=== PATIENT | female | born 1965 | race Caucasian/White ===

== ENCOUNTER 2020-05-12 10:47 | Inpatient (IN) | payer OTHER, SELFPAY ==
[2020-05-12] VITALS (47 sets, daily range): BP systolic 111–176; BP diastolic 46–100; PULSE 66–91; RESP 11–32; TEMP 36.1–38.1; O2SAT 94–100; BMI 38.2
--- NOTE | 2020-05-12 | DI.RAD.S_ITS ---
PROCEDURE: XR ANKLE LT MIN 3V INDICATIONS: ORIF LEFT ANKLE TECHNIQUE: 3 intraoperative fluoroscopic views of the ankle were acquired. COMPARISON: [facility], CR, XR ANKLE LT 2V, 05/12/2020, 12:05. FINDINGS: Intraoperative fluoroscopic images shows internal fixation of distal fibular shaft. Ankle alignment is anatomic. IMPRESSION: Fluoro guidance was provided intraoperatively for ORIF of distal fibular shaft. Dictated by: Inocente Ryan M.D. on 05/12/2020 at 17:05 Approved by: Inocente Ryan M.D. on 05/12/2020 at 17:06
--- NOTE | 2020-05-12 10:56 | DI.RAD.S_ITS ---
PROCEDURE: XR KNEE LT 1TO2V INDICATIONS: open ankle fx TECHNIQUE: 2 views of the knee were acquired. COMPARISON: [facility], CR, XR ANKLE LT 2V, 05/12/2020, 10:49. FINDINGS: Bones: No fractures or dislocations. No suspicious bony lesions. Medial patellofemoral compartment changes are present consistent with degenerative narrowing. Patellar spur is present. Soft tissues: No joint effusion. No suspicious soft tissue calcifications. IMPRESSION: No visualized acute fracture or dislocation. However, if clinical concern and/or pain persist, short interval imaging followup in 7-10 days is recommended, as occult injury cannot be definitively excluded. Dictated by: Clara Meredith M.D. on 05/12/2020 at 11:51 Approved by: Clara Meredith M.D. on 05/12/2020 at 11:51
--- NOTE | 2020-05-12 10:56 | DI.RAD.S_ITS ---
PROCEDURE: XR ANKLE LT 2V INDICATIONS: open fracture TECHNIQUE: 2 views of the ankle were acquired. COMPARISON: None. FINDINGS: Bones: There is a fracture with displacement of the distal fibula. There is impaction and posterior displacement of the tibia in relation to the tibiotalar joint space. Soft tissues: Prominent tibiotalar joint effusion. Achilles tendon appears normal. IMPRESSION: Distal fibular fracture with severe tibiotalar dislocation. Dictated by: Clara Meredith M.D. on 05/12/2020 at 11:51 Approved by: Clara Meredith M.D. on 05/12/2020 at 12:08
--- NOTE | 2020-05-12 10:59 | ED.LOWEXIN ---
HPI - Extremity Injury (Lower) General Chief Complaint: Extremity Injury, Lower Stated Complaint: GLF with open fracture Time Seen by Provider: 05/12/20 10:56 Source: patient Mode of arrival: EMS Limitations: no limitations History of Present Illness HPI Narrative: Patient is a 55-year-old female who presents with left open ankle fracture. She was walking in flip-flops when she suddenly slipped and fell. She has an obvious open fracture with bone exposed she is able to move her toes and she does have sensation. She denies any other injury. She says she was able to crawl to go and get help. She last ate last evening MD complaint: ankle injury Onset (ago): hour(s) Related Data Allergies Allergy/AdvReac Type Severity Reaction Status Date / Time No Known Drug Allergies Allergy Verified 05/12/20 10:55 Review of Systems Review of Systems Narrative: GENERAL: Denies chills, fatigue, malaise, fever, sweats, travel HEENT: Denies sinus pain, ear pain, sore throat, difficulty swallowing, neck pain RESPIRATORY: Denies dyspnea, cough, wheezing, hemoptysis, sputum. CARDIOVASCULAR: Denies chest pain, palpitations, orthopnea, edema GASTROINTESTINAL: Denies nausea, vomiting, abdominal pain, diarrhea, constipation, melena. : Denies dysuria, frequency, incontinence, hematuria, urinary retention, flank pain. MUSCULOSKELETAL: see HPI SKIN: No rash, no erythema, no pruritus NEUROLOGIC: Denies weakness, dizziness, headache, numbness, change in speech, confusion PSYCHIATRIC: No concerning psychosocial issues. 12 point review of systems is negative except for those stated above and HPI Patient History Social History Smoking Status: Unknown if ever smoked Smoking Status: Unknown if ever smoked alcohol intake frequency: holidays/special occasions only Substance Use Type: does not use Exam Initial Vital Signs Initial Vital Signs: Vital Signs Temperature 98.0 F 05/12/20 10:50 Pulse Rate 72 05/12/20 10:50 Respiratory Rate 15 05/12/20 10:50 Blood Pressure 161/95 H 05/12/20 10:50 Pulse Oximetry 95 05/12/20 10:50 GENERAL: [Well-appearing, well-nourished] and in [no acute] distress. HEENT: Head atraumatic,EOMI, pupils reactive, face symmetric, [moist] mucous membranes CARDIOVASCULAR: Regular rate and rhythm without murmurs, rubs or gallops. RESPIRATORY: Breath sounds equal bilaterally, no wheezes rales or rhonchi. ABDOMEN: Soft, nontender. Normoactive bowel sounds all 4 quadrants. No guarding or rebound EXTREMITIES: Normal range of motion, no clubbing or edema. Neurovascularly intact left lower extremity foot is completely in inverted with medial laceration at least 15 cm long with bone exposed. She is able to move her toes a pulse is palpable and foot is warm. NEUROLOGICAL: Alert and oriented x4. SKIN: Warm, dry, no laceration, no petechiae, no rashes or lesions. Procedures Orthopedic Fracture Reduction Fracture #1: Time Out Performed: Yes Side: left Fracture Reduction Location: tibia and fibula Analgesia: procedural sedation Technique: direct manipulation Post Reduction X-rays Demonstrate: acceptable reduction Post-reduction neuro exam: intact and no change Post-reduction vascular exam: intact and no change Splint Applied: Yes Patient Tolerated Procedure: Well Orthopedic Splinting/Casting Injury #1: Side: left Lower Extremity Injury Location: ankle Lower Extremity Immobilizer: posterior splint Post splinting neuro exam: intact and no change Post splinting vascular exam: intact Placed by: Provider Procedural Sedation Consent signed: Yes Time out performed: Yes Indication: fracture/dislocation reduction ASA Class: III Mallampati Airway Classification: Class II Preparation: classroom monitor applied, pulse oximeter, capnometry used, supplemental O2 applied, suction/airway equipment at bedside and IV secured IV Propofol dose (mg): 100 Intraservice time/total sedation time (min): 11 ED Sedation Level: Moderate (Concious) Patient Tolerated Procedure: Well Complications: Respiratory Depression-Repositioning Required Interventions: Airway repositioned Course Orders Ordered: ED Orders 05/12/20 10:55 COVID19 -ED/INPAT/OR/L&D Stat 05/12/20 10:56 XR ankle LT 2V Stat XR knee LT 1to2V Stat 05/12/20 11:27 Basic Metabolic Panel Stat Complete Blood Count AUTO DIFF Stat 05/12/20 12:05 XR ankle LT 2V Stat Acetaminophen (Tylenol) 650 mg PO PACUNOW PRN PRN Reason: Pain, Mild (1-3) Fentanyl (Sublimaze) 0 mcg IV Q5M PRN PRN Reason: Pain, Moderate (4-6) Hydromorphone HCl (Dilaudid) 0 mg IV Q5MIN PRN PRN Reason: Pain, Mild (1-3) Lactated Ringer's (Lactated Ringers) 1,000 mls @ 42 mls/hr IV CONT ABI Last Admin: 05/12/20 15:20 Dose: 42 mls/hr Documented by: EDWARD Metoclopramide HCl (Reglan) 10 mg IV NOW PRN PRN Reason: Nausea And Vomiting Ondansetron HCl (Zofran) 4 mg IV NOW PRN PRN Reason: Nausea And Vomiting Oxycodone HCl (Percolone) 5 mg PO PACUNOW PRN PRN Reason: Mild or moderate pain Discontinued Medications Acetaminophen (Tylenol) 975 mg PO NOW ONE Stop: 05/12/20 12:11 Last Admin: 05/12/20 15:49 Dose: Not Given Documented by: EDWARD Bupivacaine HCl/Epinephrine Bitart (Sensorcaine 0.5% W/ Epi (Pf)) 30 ml INJ NOW ONE Stop: 05/12/20 16:19 Last Admin: 05/12/20 16:19 Dose: 15 ml Documented by: MARCY Cefazolin Sodium (Ancef Vial) 1 gm IV NOW ONE Stop: 05/12/20 10:57 Last Admin: 05/12/20 11:14 Dose: Not Given Documented by: LEO Sodium Chloride 3,000 ml/ (Gentamicin Sulfate 240 mg) 0 ml IRR NOW ONE Stop: 05/12/20 16:20 Last Admin: 05/12/20 16:00 Dose: 3,000 ml Documented by: MARCY Sodium Chloride 1,000 ml/ (Gentamicin Sulfate 80 mg) 0 ml IRR NOW ONE Stop: 05/12/20 16:22 Last Admin: 05/12/20 16:21 Dose: 1,000 ml Documented by: MARCY Diphtheria/Tetanus/Acell Pertussis (Adacel) 0.5 ml IM .ONCE ONE Stop: 05/12/20 10:57 Last Admin: 05/12/20 11:13 Dose: 0.5 ml Documented by: LEO Hydromorphone HCl (Dilaudid) 0.5 mg IV NOW ONE Stop: 05/12/20 10:57 Last Admin: 05/12/20 11:14 Dose: 0.5 mg Documented by: LEO Cefazolin Sodium/Dextrose (Ancef) 1 gm in 50 mls @ 200 mls/hr IV NOW ONE Stop: 05/12/20 11:29 Last Infusion: 05/12/20 11:38 Dose: 0 mls/hr Documented by: Admin: 05/12/20 11:14 Dose: 200 mls/hr Documented by: LEO Cefazolin Sodium/Dextrose (Ancef) 2 gm in 100 mls @ 200 mls/hr IV NOW ONE Stop: 05/12/20 16:44 Last Admin: 05/12/20 15:36 Dose: 200 mls/hr Documented by: JONATHAN Propofol (Diprivan) 100 mg IV NOW ONE Stop: 05/12/20 11:44 Last Admin: 05/12/20 11:57 Dose: 100 mg Documented by: LEO Scopolamine (Transderm-Scop) 1 patch TOP NOW ONE Stop: 05/12/20 12:11 Last Admin: 05/12/20 15:49 Dose: Not Given Documented by: EDWARD Vital Signs Vital signs: Vital Signs - 8 hr 05/12/20 10:50 05/12/20 10:53 05/12/20 11:00 Temperature 98.0 F Pulse Rate 72 78 79 Respiratory Rate 15 Blood Pressure 161/95 H 157/90 H Blood Pressure [Left Arm] Pulse Oximetry 95 98 97 05/12/20 11:30 05/12/20 11:57 05/12/20 12:00 Temperature Pulse Rate 74 72 83 Respiratory Rate 12 25 H Blood Pressure Blood Pressure [Left Arm] 173/88 H 161/90 H Pulse Oximetry 97 99 96 05/12/20 12:05 05/12/20 12:10 05/12/20 12:15 Temperature Pulse Rate 78 77 73 Respiratory Rate 16 19 22 Blood Pressure Blood Pressure [Left Arm] 151/86 H 151/84 H 149/89 H Pulse Oximetry 97 99 98 05/12/20 12:20 05/12/20 12:25 05/12/20 12:30 Temperature Pulse Rate 69 70 73 Respiratory Rate 16 15 18 Blood Pressure 158/82 H 151/87 H Blood Pressure [Left Arm] 165/93 H 158/82 H 151/87 H Pulse Oximetry 97 95 99 05/12/20 12:36 05/12/20 12:40 05/12/20 12:45 Temperature Pulse Rate 72 79 75 Respiratory Rate 24 18 17 Blood Pressure 147/87 H 153/97 H 139/83 Blood Pressure [Left Arm] Pulse Oximetry 99 96 97 05/12/20 12:50 05/12/20 12:55 05/12/20 13:00 Temperature Pulse Rate 70 71 74 Respiratory Rate 15 16 32 H Blood Pressure 166/84 H 139/78 Blood Pressure [Left Arm] Pulse Oximetry 99 100 99 05/12/20 13:01 05/12/20 13:05 05/12/20 13:10 Temperature Pulse Rate 79 73 75 Respiratory Rate 16 15 25 H Blood Pressure 166/75 H 161/71 H 154/71 H Blood Pressure [Left Arm] Pulse Oximetry 100 97 95 05/12/20 13:16 05/12/20 13:21 Temperature Pulse Rate 66 67 Respiratory Rate 21 15 Blood Pressure 175/86 H 175/77 H Blood Pressure [Left Arm] Pulse Oximetry 99 97 MDM - Extremity Injury (Lower) Lab Data Attestation: I reviewed the patient's lab results. Result diagrams: 05/12/20 11:27 05/12/20 11:27 Labs: Lab Results 05/12/20 05/12/20 05/12/20 Range/Units 10:55 11:27 11:27 WBC 8.6 (4.5-11.0) X10^3/uL RBC 5.54 H (4.0-5.2) X10^6/uL Hgb 13.7 (12.0-16.0) g/dL Hct 43.2 (36-46) % MCV 77.9 L (80-100) fL MCH 24.7 L (26-34) PG MCHC 31.7 (30-36) % RDW 15.4 H (11.6-14.8) % Plt Count 292 (150-400) X10^3/uL Neut % (Auto) 76.6 H (50-75) % Lymph % (Auto) 12.6 L (25-40) % [place] % (Auto) 7.2 (3-14) % Eos % (Auto) 3.1 (2-4) % Baso % (Auto) 0.5 (0-2) % Neut # (Auto) 6600 (9911-3635) /uL Lymph # (Auto) 1100 (0850-8647) /uL [place] # (Auto) 600 (0-900) /uL Eos # (Auto) 300 (0-450) /uL Baso # (Auto) 0 (0-100) /uL Sodium 140 (137-145) mmol/L Potassium 4.2 (3.4-5.1) mmol/L Chloride 106 (98-107) mmol/L Carbon Dioxide 31 (22-32) mmol/L BUN 14 (7-17) mg/dL Creatinine 0.58 (0.52-1.04) mg/dL Estimated GFR > 60.0 (>60) mL/min BUN/Creatinine Ratio 24.1 H (6-22) Glucose 119 H (70-100) mg/dL Calcium 9.1 (8.4-10.2) mg/dL COVID-19 PCR Negative (Negative) Point of Care Testing Test Results Not applicable Imaging Data Extremity x-ray #1: Radiologist's Impression: PROCEDURE: XR ANKLE LT 2V INDICATIONS: open fracture TECHNIQUE: 2 views of the ankle were acquired. COMPARISON: None. FINDINGS: Bones: There is a fracture with displacement of the distal fibula. There is impaction and posterior displacement of the tibia in relation to the tibiotalar joint space. Soft tissues: Prominent tibiotalar joint effusion. Achilles tendon appears normal. IMPRESSION: Distal fibular fracture with severe tibiotalar dislocation. Dictated by: Clara Meredith M.D. on 05/12/2020 at 11:51 Approved by: Clara Meredith M.D. on 05/12/2020 at 12:08 Extremity x-ray #2: Radiologist's Impression: PROCEDURE: XR KNEE LT 1TO2V INDICATIONS: open ankle fx TECHNIQUE: 2 views of the knee were acquired. COMPARISON: [facility], , XR ANKLE LT 2V, 05/12/2020, 10:49. FINDINGS: Bones: No fractures or dislocations. No suspicious bony lesions. Medial patellofemoral compartment changes are present consistent with degenerative narrowing. Patellar spur is present. Soft tissues: No joint effusion. No suspicious soft tissue calcifications. IMPRESSION: No visualized acute fracture or dislocation. However, if clinical concern and/or pain persist, short interval imaging followup in 7-10 days is recommended, as occult injury cannot be definitively excluded. Dictated by: Clara Meredith M.D. on 05/12/2020 at 11:51 Approved by: Clara Meredith M.D. on 05/12/2020 at 11:51 Extremity x-ray #3: Radiologist's Impression: PROCEDURE: XR ANKLE LT 2V INDICATIONS: post reduction TECHNIQUE: 2 views of the ankle were acquired. COMPARISON: [facility], CR, XR ANKLE LT 2V, 05/12/2020, 10:49. FINDINGS: Bones: Interval reduction of tibiotalar dislocation and distal fibular fracture. There is improved alignment of the distal fibular fracture. Tibiotalar dislocation is pattern alignment. However, there remains medial dislocation. Soft tissues: Moderate tibiotalar joint effusion. Achilles tendon appears normal. IMPRESSION: Interval reduction of distal fibular fracture and tibiotalar dislocation as above. Dictated by: Clara Meredith M.D. on 05/12/2020 at 12:22 Approved by: Clara Meredith M.D. on 05/12/2020 at 12:30 MDM Narrative Medical decision making narrative: Dr. kerr updated patient's symptoms test results he has reviewed x-ray. Agrees with reduction in the ED and planned for OR this afternoon. Discharge Plan Departure Patient Disposition: Admitted as Observation Clinical Impression: Open fracture dislocation of ankle Qualifiers: Encounter type: initial encounter Laterality: left Discharge Date/Time: 05/12/20 15:00 Referrals: Pako Mehta MD [Primary Care Provider] - Admit Date/Time: 05/12/20 13:24 Admit Provider: Gian Peter
[2020-05-12] MEDS: TET,DIPH,PERTUSS(ACELL),VAC/PF 0.5 ML SYRINGE IM (11:13)
[2020-05-12] MEDS: HYDROMORPHONE 0.5 MG INJ IV (11:14)
[2020-05-12] MEDS: CEFAZOLIN 1 GM/50 ML FROZ.PIGGY IV (11:14)
[2020-05-12 11:18] LABS: COVID19 -Nasal RAPID Negative (Negative)
[2020-05-12 11:37] LABS: Add Manual Diff / Slide Review NO; Basophils Absolute Auto 0 /uL (0-100); Basophils Percent Auto 0.5 % (0-2); Eosinophils Absolute Auto 300 /uL (0-450); Eosinophils Percent Auto 3.1 % (2-4); Hematocrit 43.2 % (36-46); Hemoglobin 13.7 g/dL (12.0-16.0); Lymphocytes Absolute Auto 1100 /uL (1100-4500); Lymphocytes Percent Auto 12.6 % (25-40); Mean Corpuscular HGB Conc 31.7 % (30-36); Mean Corpuscular Hemoglobin 24.7 PG (26-34); Mean Corpuscular Volume 77.9 fL (80-100); Monocytes Absolute Auto 600 /uL (0-900); Monocytes Percent Auto 7.2 % (3-14); Neutrophils Absolute Auto 6600 /uL (1500-7000); Neutrophils Percent Auto 76.6 % (50-75); Platelet Count 292 X10^3/uL (150-400); Red Blood Cell Count 5.54 X10^6/uL (4.0-5.2); Red Cell Distribution Width 15.4 % (11.6-14.8); White Blood Cell Count 8.6 X10^3/uL (4.5-11.0)
[2020-05-12 11:54] LABS: BUN Creatinine Ratio 24.1 (6-22); Blood Urea Nitrogen 14 mg/dL (7-17); Calcium 9.1 mg/dL (8.4-10.2); Carbon Dioxide 31 mmol/L (22-32); Chloride 106 mmol/L (98-107); Estimated Glomerular Filt Rate > 60.0 mL/min (>60); Glucose 119 mg/dL (70-100); HEMOLYSIS < 15 (0-50); Potassium 4.2 mmol/L (3.4-5.1); Sodium 140 mmol/L (137-145)
--- NOTE | 2020-05-12 12:05 | DI.RAD.S_ITS ---
PROCEDURE: XR ANKLE LT 2V INDICATIONS: post reduction TECHNIQUE: 2 views of the ankle were acquired. COMPARISON: [facility], CR, XR ANKLE LT 2V, 05/12/2020, 10:49. FINDINGS: Bones: Interval reduction of tibiotalar dislocation and distal fibular fracture. There is improved alignment of the distal fibular fracture. Tibiotalar dislocation is pattern alignment. However, there remains medial dislocation. Soft tissues: Moderate tibiotalar joint effusion. Achilles tendon appears normal. IMPRESSION: Interval reduction of distal fibular fracture and tibiotalar dislocation as above. Dictated by: Clara Meredith M.D. on 05/12/2020 at 12:22 Approved by: Clara Meredith M.D. on 05/12/2020 at 12:30
[2020-05-12] MEDS: propofoL 200 MG/20 ML VIAL 100 MG IV (12:08)
--- NOTE | 2020-05-12 12:30 | PC.NURSE ---
procedural sedation 1:1
--- NOTE | 2020-05-12 14:51 | PM.HP.1 ---
History of Present Illness History of Present Illness Date Patient Seen: 05/12/20 Time Patient Seen: 14:52 Date of Onset of Symptoms: 05/12/20 Chief complaint: GLF with open fracture Narrative: 55-year-old female with an open left ankle fracture. She reports that she twisted her ankle about 3 months ago and has had a few falls and feelings of instability in the ankle since then. Today she was walking down her driveway and slipped. She twisted and sustained an open fracture. She crawled up to the house and got help. In the emergency room she was found to have a 15 cm medial laceration with a tibial talar dislocation. This was provisionally reduced and she was given Ancef. She denies pain anywhere else. She did not hit her head or lose consciousness. Pain is under decent control right now. Patient History Family & Social History Safety & Behavioral: Feels Safe in Current Yes Environment Been Physically Hurt or No Threatened By a Person Tobacco & Substance use: Smoking Status Unknown if ever smoked alcohol intake frequency holiday/special occasion Substance Use Type does not use Meds Home Medications and Allergies Allergies Allergy/AdvReac Type Severity Reaction Status Date / Time No Known Drug Allergies Allergy Verified 05/12/20 10:55 Review of Systems Constitutional Constitutional: Denies chills and Denies fever(s) Cardiovascular Cardiovascular: Denies chest pain Respiratory Respiratory: Denies cough Gastrointestinal Gastrointestinal: Denies abdominal pain Endocrine Comments: She is prediabetic Hematologic/Lymphatic Hematologic/Lymphatic: Denies easy bleeding Exam Vital Signs (past 8 hours): - 05/12/20 10:50 05/12/20 10:53 05/12/20 11:00 Temperature 98.0 F Pulse Rate 72 78 79 Respiratory Rate 15 Blood Pressure 161/95 H 157/90 H Blood Pressure [Left Arm] Pulse Oximetry 95 98 97 05/12/20 11:30 05/12/20 11:57 05/12/20 12:00 Temperature Pulse Rate 74 72 83 Respiratory Rate 12 25 H Blood Pressure Blood Pressure [Left Arm] 173/88 H 161/90 H Pulse Oximetry 97 99 96 05/12/20 12:05 05/12/20 12:10 05/12/20 12:15 Temperature Pulse Rate 78 77 73 Respiratory Rate 16 19 22 Blood Pressure Blood Pressure [Left Arm] 151/86 H 151/84 H 149/89 H Pulse Oximetry 97 99 98 10/15/20 12:20 05/12/20 12:25 05/12/20 12:30 Temperature Pulse Rate 69 70 73 Respiratory Rate 16 15 18 Blood Pressure 158/82 H 151/87 H Blood Pressure [Left Arm] 165/93 H 158/82 H 151/87 H Pulse Oximetry 97 95 99 05/12/20 12:36 05/12/20 12:40 05/12/20 12:45 Temperature Pulse Rate 72 79 75 Respiratory Rate 24 18 17 Blood Pressure 147/87 H 153/97 H 139/83 Blood Pressure [Left Arm] Pulse Oximetry 99 96 97 05/12/20 12:50 05/12/20 12:55 05/12/20 13:00 Temperature Pulse Rate 70 71 74 Respiratory Rate 15 16 32 H Blood Pressure 166/84 H 139/78 Blood Pressure [Left Arm] Pulse Oximetry 99 100 99 05/12/20 13:01 05/12/20 13:05 05/12/20 13:10 Temperature Pulse Rate 79 73 75 Respiratory Rate 16 15 25 H Blood Pressure 166/75 H 161/71 H 154/71 H Blood Pressure [Left Arm] Pulse Oximetry 100 97 95 05/12/20 13:16 05/12/20 13:21 05/12/20 13:25 Temperature Pulse Rate 66 67 79 Respiratory Rate 21 15 22 Blood Pressure 175/86 H 175/77 H 160/74 H Blood Pressure [Left Arm] Pulse Oximetry 99 97 94 05/12/20 13:30 05/12/20 13:35 05/12/20 13:40 Temperature Pulse Rate 71 79 76 Respiratory Rate 14 13 17 Blood Pressure 164/76 H 169/74 H 170/90 H Blood Pressure [Left Arm] Pulse Oximetry 99 100 94 05/12/20 14:00 05/12/20 14:01 05/12/20 14:07 Temperature Pulse Rate 78 78 74 Respiratory Rate 20 19 24 Blood Pressure Blood Pressure [Left Arm] Pulse Oximetry 99 98 99 05/12/20 14:08 Temperature Pulse Rate Respiratory Rate Blood Pressure 176/87 H Blood Pressure [Left Arm] Pulse Oximetry Oxygen Delivery Method Room Air Oxygen Flow Rate 2 Const Orientation: alert and oriented x3 Resp Auscultation: clear to auscultation bilaterally Cardio Rate: regular rate Rhythm: regular rhythm Extrem Other: Left ankle 15 cm medial laceration. 2+ dorsalis pedis pulse. Easily wiggles toes. Intact sensation throughout the foot. Objective Imaging Left ankle x-rays: My impression: Initial x-ray show a tibial talar dislocation with lateral malleolus fracture. Post reduction images still show 1 cm of medial widening but no evidence of the medial malleolar fragment. Labs Result Diagrams: 05/12/20 11:27 05/12/20 11:27 Labs: Laboratory Results - last 24 hr 05/12/20 05/12/20 05/12/20 10:55 11:27 11:27 WBC 8.6 RBC 5.54 H Hgb 13.7 Hct 43.2 MCV 77.9 L MCH 24.7 L MCHC 31.7 RDW 15.4 H Plt Count 292 Neut % (Auto) 76.6 H Lymph % (Auto) 12.6 L [place] % (Auto) 7.2 Eos % (Auto) 3.1 Baso % (Auto) 0.5 Neut # (Auto) 6600 Lymph # (Auto) 1100 [place] # (Auto) 600 Eos # (Auto) 300 Baso # (Auto) 0 Sodium 140 Potassium 4.2 Chloride 106 Carbon Dioxide 31 BUN 14 Creatinine 0.58 Estimated GFR > 60.0 BUN/Creatinine Ratio 24.1 H Glucose 119 H Calcium 9.1 COVID-19 PCR Negative Assessment & Plan Assessment & Plan narrative: Open right ankle fracture dislocation Plan to take the operating room for irrigation debridement and ORIF of the lateral malleolus. Risks and benefits of surgery were discussed including not limited to medical risk with heart attack, stroke, , DVT, PE, infection, bleeding, scarring, nerve injury with pain numbness weakness paralysis, nonunion, stiffness, laxity, failure to alleviate symptoms, need for further surgery. She will be in the hospital for 2 days for IV antibiotics. Moderate obesity with a BMI of 38.3. This will make it more difficult for touchdown weight-bearing status postoperatively. COVID-19 COVID-19 status: Negative Result date/Date tested (Pos, Neg/Pending): 05/12/20
[2020-05-12] MEDS: LACTATED RINGERS 1,000 ML 42 ML IV ×2 (15:20→17:35)
[2020-05-12] MEDS: MIDAZOLAM 2 MG/2 ML VIAL (15:25)
[2020-05-12] MEDS: fentaNYL 100 MCG/2 ML INJ (15:27)
[2020-05-12] MEDS: CEFAZOLIN 2 GM/100 ML FROZ.PIGGY IV ×2 (15:36→23:51)
[2020-05-12] MEDS: SODIUM CHLORIDE IRRIG SOLUTION 3,000 ML, GENTAMICIN 240 MG IRR (16:00)
[2020-05-12] MEDS: BUPIVACAINE 0.5% W/ EPI (PF) 30 ML VIAL INJ (16:19)
[2020-05-12] MEDS: SODIUM CHLORIDE 0.9% 1,000 ML, GENTAMICIN 80 MG IRR (16:21)
--- NOTE | 2020-05-12 16:45 | SUR.HOLD ---
Block start time [1425] . Monitoring initiated and maintained throughout procedure. Oxygen and medications given per anesthesiologist instructions. Patient remained stable throughout procedure, no adverse reactions noted. Block end time [].1435
--- NOTE | 2020-05-12 17:19 | P.OP_ITS ---
Operative Date/Time/Diagnoses Date of procedure: 05/12/20 Time of procedure: 17:19 Pre-op diagnosis: Open left ankle fracture with tibiotalar dislocation and fracture of the lateral malleolus Post-op diagnosis: same Procedure & Clinicians Procedure: Irrigation debridement of open tibiotalar joint dislocation ORIF of left lateral malleolus fracture Repair of medial deltoid ligament of the ankle Same procedure as scheduled: Yes Indications: 55-year-old female with an open left ankle fracture dislocation. It is felt she would require surgical debridement and repair. Risks and benefits of surgery discussed appropriate consents obtained. Surgeon: Gian Peter Click Yes if Unassisted: Yes Anesthesia Type: General Operative Notes Findings: None Closure Type: primary Specimen(s): none sent Prosthetic devices, grafts, tissues, transplants, or devices: Sent these small frag LCDCP plate Estimated Blood Loss (mL): 5 Procedure in detail: Patient brought to the operating room and intubated on the table. Preoperative antibiotics were given. Time-out was performed. Attention was turned towards the well-marked left ankle. A well-padded tourniquet was placed over the thigh. The left leg was prepped and draped in the standard sterile fashion. She had a 8 cm transverse laceration over the lateral malleolus. We applied pressure and opened up the joint to expose this. The joint was cleared out. There was significant cartilage scuffing on the underside of the tibia as well as along the top of the talus. The wound and joint were copiously irrigated. We debrided the soft tissue with a small curette. We irrigated more. We then re-reduced the ankle. A 12 cm longitudinal incision was made along the lateral malleolus. We bluntly dissected down to the bone. We dissected and exposed the fracture site. This was irrigated. We then reduced this with a clamp and held it with a lag screw. We then took a LCDCP plate and bent it and placed it posteriorly. We then placed 3 distal and 3 proximal screws. Final x-rays were taken. We stressed her the with varus and valgus stress and the ankle was well reduced and did not open up. The wounds were irrigated. The superficial and skin were closed. Sterile dressing was placed. She was then placed in a well-padded posterior splint with stirrups. She was extubated brought to recovery room with no complications. Complications: none Post-operative Condition: stable Disposition: PACU Plan for aftercare: Inpatient. Up with physical therapy. Touchdown weight- bearing on the left ankle for the next 6 weeks. She will need to be in the hospital for 48 hours of IV antibiotics and then transition home on Keflex.
[2020-05-12] MEDS: HYDROMORPHONE 2 MG INJ IV ×5 (17:34→17:57)
[2020-05-12] MEDS: ONDANSETRON 4 MG/2 ML INJ IV (17:39)
--- NOTE | 2020-05-12 18:18 | SUR.PHASEI ---
Report called to Landy
--- NOTE | 2020-05-12 18:44 | SUR.PHASEI ---
Patient transferred to the floor with O2 monitor. Report given to Landy. VS stable. IV saline locked. Left foot dressing CDI.
[2020-05-12] MEDS: LACTATED RINGERS 1,000 ML 125 ML IV (19:53)
[2020-05-12] MEDS: MAGNESIUM HYDROXIDE 30 ML UDC PO (21:14)
[2020-05-12] MEDS: DOCUSATE 100 MG CAPSULE PO (21:14)
--- NOTE | 2020-05-12 23:44 | PC.NURSE ---
Admit/Evening Shift Note- Patient arrived to room via bed from PACU. Patient alert and oriented. Admit questions done, medications reviewed, physical assessment AND skin check done. LLL elevated up on pillows amd ice bags proved. safety measures in place. Patient agress to call for assistance. bed alarm activated. will contunue monitor.
--- NOTE | 2020-05-13 00:51 | PC.NURSE ---
0000 Patient is alert and oriented. Breath sounds CTA with sat of 95% on oxygen at 2L/min per NC (per evening RN O2 sats dropping when asleep). HRR. BP elevated at 146/90. Denies nausea. BT present and is passing flatus. Up to BSC with 1 assist + walker and pivoting from bed to commode. Able to turn self in bed. Denies dysuria, frequency or urgency with urination. Dressing to left elbow is CDI. Dressing to left foot/ lower leg is CDI. CMS intact. States pain is left ankle is 2/10 and declines pain medication. Left LE is elevated on pillows. Wearing right calf SCD. Fall risk score is high and bed alarm is activated.
[2020-05-13 04:42] VITALS: BP 164/83; PULSE 91; RESP 18; TEMP 36.8; O2SAT 97
[2020-05-13] MEDS: LACTATED RINGERS 1,000 ML 125 ML IV (04:42)
[2020-05-13 08:00] VITALS: BP 150/74; PULSE 93; RESP 17; TEMP 36.6; O2SAT 95
[2020-05-13] MEDS: ENOXAPARIN 40 MG/0.4 ML SYRINGE SUBCUT (08:37)
[2020-05-13] MEDS: polyethylene glycoL 3350 17 GM POWD.PACK PO (08:37)
[2020-05-13] MEDS: DOCUSATE 100 MG CAPSULE PO ×2 (08:37→20:41)
[2020-05-13] MEDS: CEFAZOLIN 2 GM/100 ML FROZ.PIGGY IV ×3 (08:37→23:31)
--- NOTE | 2020-05-13 09:17 | PM.PNPO.1 ---
Subjective Subjective Date Patient Seen: 05/13/20 Time Patient Seen: 09:17 Interval history: She is doing very well. Minimal pain overnight but the block is starting to wear off. Exam Vital Signs (past 8 hours): - 05/13/20 04:42 05/13/20 08:00 Temperature 98.3 F 97.8 F Pulse Rate 91 H 93 H Respiratory Rate 18 17 Blood Pressure 164/83 H 150/74 H Pulse Oximetry 97 95 Oxygen Delivery Method Nasal Cannula Oxygen Flow Rate 0 Const Orientation: alert and oriented x3 Extrem Other: Dressing intact. Easily wiggles toes. Good capillary refill. Good sensation in toes. Objective Labs Result Diagrams: 05/12/20 11:27 05/12/20 11:27 Labs: Laboratory Results - last 24 hr 05/12/20 05/12/20 05/12/20 10:55 11:27 11:27 WBC 8.6 RBC 5.54 H Hgb 13.7 Hct 43.2 MCV 77.9 L MCH 24.7 L MCHC 31.7 RDW 15.4 H Plt Count 292 Neut % (Auto) 76.6 H Lymph % (Auto) 12.6 L [place] % (Auto) 7.2 Eos % (Auto) 3.1 Baso % (Auto) 0.5 Neut # (Auto) 6600 Lymph # (Auto) 1100 [place] # (Auto) 600 Eos # (Auto) 300 Baso # (Auto) 0 Sodium 140 Potassium 4.2 Chloride 106 Carbon Dioxide 31 BUN 14 Creatinine 0.58 Estimated GFR > 60.0 BUN/Creatinine Ratio 24.1 H Glucose 119 H Calcium 9.1 COVID-19 PCR Negative Assessment & Plan Post-op Postoperative Procedures: Procedures Operation Date: 05/12/20 14:15 Actual Procedures Side Surgeon p wash out / ORIF Ankle Fracture Left Gian Peter MD She is doing well. Mobilize today with physical therapy on touchdown weight-bearing. Continue 48 hours of antibiotics and can discharge home tomorrow morning on Keflex for 10 days. Quality VTE Deep Vein Thrombosis/Pulmonary Embolism Present on Admission: No
--- NOTE | 2020-05-13 09:35 | PT.IIE ---
Surgery Performed Operation Date: 05/12/20 14:15 Actual Procedures p wash out / ORIF Ankle Fracture(Left) - Gian Peter MD Physical Therapy Inpatient Evaluation/Re-Eval M1 PT/OT-IP Prior Functional Status Start: 05/13/20 11:49 Freq: NEEDED Status: Active Protocol: Document 05/13/20 09:35 AB (Rec: 05/13/20 12:17 AB [id number]) Medical Review Prior Functional Status Medical History Reviewed Yes Communication able to make needs known Mobility and Gait pt stated that she is independent with all mobilities and ambulation without AD Social History Household Members spouse Living Arrangements House Number of Floors (Floors) Two Floors Number of Stairs To Enter/Railing? no steps to enter; stays on main level of the house Home Environment Standard Height Toilet,Walk in Shower Home Equipment Front Wheel Walker,Shower Seat with Backrest Employment Status Vehicle Mechanic Employed Additional Social History Comment has a knee scooter pt works as a real estate underwriter pt stated that she has access to DME: stated that her brother owns [employer] M2 PT-IP Current Condition Start: 05/13/20 11:49 Freq: NEEDED Status: Active Protocol: Document 05/13/20 09:35 AB (Rec: 05/13/20 12:17 AB [id number]) Physical Therapy Current Condition Current Condition Evaluation Date 05/13/20 Treatment Diagnosis L distal fib fx w/ tibiotalar dislocation s/p ORIF; difficulty in walking Onset Date 05/12/20 Precautions Brace L ankle on soft cast Weight Bearing Status Weight Bearing Status Touch Down Weight Bearing Allowed Weight Bearing Amount (enter % TTWB LLE or #) (%) M3 PT-IP Subjective Start: 05/13/20 11:49 Freq: NEEDED Status: Active Protocol: Document 05/13/20 09:35 AB (Rec: 05/13/20 12:17 AB [id number]) Subjective Physical Therapy Visit Type Type Initial Evaluation Visit Start Time 09:35 Visit Stop Time 10:11 Total Visit Minutes 36 Number of HEAVY EQUIPMENT RENTAL ASSOCIATE Visits 0 Physical Therapy Visit Comments Patient Comments pt is agreeable to do PT Therapy Pain Assessment Pain When Pain Assessed At Rest Pain Present Pain Present Pain Reported Location Left Ankle Scale Used stated soreness but not pain Pain Management Techniques Elevation,Modification of Treatment,Timing of Activity with Medications M4 PT-IP Mobility and Gait Start: 05/13/20 11:49 Freq: NEEDED Status: Active Protocol: Document 05/13/20 09:35 AB (Rec: 05/13/20 12:17 AB [id number]) PT-Bed Mobility Assessment Supine to Sit Supine to Sit Standby Assistance,1 Person Assistance PT-Transfer Assessment Sit to and From Stand Sit to and from Stand Contact Guard Assistance,1 Person Assistance,Use of Upper Extremities Equipment Transfer Assistive Device Gait Belt,Front Wheeled Walker Orthotic/Prosthetic Devices or Brace: No Transfers Transfer Destination Chair Transfer Technique ambulated using FWW Transfer Ability Level of Assist Contact Guard Assistance,1 Person Assistance,Use of Upper Extremities Comments Mobility Comments pt completed supine to sit SBA . pt was able to sit on EOB SBA. educated on weight bearing restriction on LLE. completed sit to stand CGA and ambulate din room ~ 12 ft CGA . agreed to sit on chair. positioned on chair. call light and table placed within reach. Gait Assessment Gait Gait Assistance Required: Contact Guard Assist Distance (Feet) 12 Able to Maintain Weight Bearing Status Yes During Gait Assistive Devices Assistive Device Gait Belt,Front Wheeled Walker Factors Limiting Gait Function Factors Limiting Gait Function Decreased Activity Tolerance, Decreased Strength,Limited Range of Motion,Pain,Poor Balance,Poor Safety Awareness PT-Balance Assessment Sitting Balance and Reactions Static Sitting Balance Ability Normal Dynamic Sitting Balance Ability Normal Standing Balance and Reactions Static Standing Balance Ability Fair Dynamic Standing Balance Ability Fair Device Used FWW M5 PT-IP Objective Assessments Start: 05/13/20 11:49 Freq: NEEDED Status: Active Protocol: Document 05/13/20 09:35 AB (Rec: 05/13/20 12:17 AB [id number]) Orientation Orientation/Cognition Level of Alertness Alert Orientation Name,Age,Birthday,Month,Date, Year,Day of Week,Place, Situation Language Function Ability No Deficits Noted Safety Awareness Understands Safety Issues Memory Description No Deficits Noted Gross Range of Motion Lower Extremity ROM Assessment Left Impaired Impairments L ankle on soft cast Strength Lower Extremity Strength Assessment Left Impaired Ankle n/t Coordination Assessment Gross Coordination Gross Coordination WNL Sensation Assessment Sensation Gross Sensation WNL Muscle Tone Muscle Tone WNL Yes M6 PT-IP Treatment Start: 05/13/20 11:49 Freq: NEEDED Status: Active Protocol: Document 05/13/20 09:35 AB (Rec: 05/13/20 12:17 AB [id number]) Physical Therapy Treatment Education Education Provided Precautions,Weight Bearing Status,Safety M7 PT-IP Assessment and Plan Start: 05/13/20 11:49 Freq: NEEDED Status: Active Protocol: Document 05/13/20 09:35 AB (Rec: 05/13/20 12:17 AB [id number]) PT Summary Assessment and Plan Potential Rehabilitation Potential Good Status of Condition at Evaluation Stable Summary Impairments Pain,ROM,Strength,Balance, Coordination,Sensation,Tone, Cognition,Bed Mobility, Transfers,Gait,Activity Tolerance Assessment Summary pt requiring CGA with mobility using FWW. informed pt and spouse regarding w/c need for long distance mobility and pt understood. stated that they have access to DMEs since her brother owns [employer]. pt will have her spouse and daughter to assist her at home . Goals Bed Mobility Goal Independent Transfer Goal Independent,Front Wheeled Walker Gait Goal Independent,Front Wheel Walker Gait Distance 50 Days to Meet Goals 5 Frequency of Treatment Frequency Of Treatment Twice a Day Treatment Plan Physical Therapy Treatment Plan Bed Mobility Training,Transfer Training,Gait Training, Therapeutic Exercise,Balance Retraining,Post Op Education, Discharge Planning,Hot or Cold Pack,Neuromuscular Re-ed, Coordination Retraining,Manual Therapy Recommendations To Nursing Amount of Assist Needed 1 Person Assist Discharge Recommendations PT Discharge Recommendations Home with Assistance, Outpatient PT Transportation Needs at Discharge Private Vehicle
[2020-05-13 11:00] VITALS: BP 152/84; PULSE 87; RESP 16; TEMP 36.6; O2SAT 96
--- NOTE | 2020-05-13 13:24 | CM.DANOTE ---
DCP assessment: EMR reviewed: Patient is a 55 yr old female who was admitted for Lt ankle fracture and needed surgical repair preformed by Dr. Peter. Cm/RN met with patient at the bedside and explained role. patient was alert and oriented x3 during CM visit. Patient currently lives with her Cole and her two adult children. Patient stated she was injured while working. Patient states she has no insurance but intends to file a L&I claim for her injuries since they happened while she was working. Patient currently is only touch wt bearing for the next 6 weeks and will need to have Oral ABX at D/C. Patient home has no stairs. Patient is independent with all ADLS at baseline and drives. patient currently has a wheel chair and is working on getting a knee scooter to assist with patients mobility. I: Self pay Plan: D/C home with family when medically stable with no needs from Care Management. CM will continue to follow patient to assist with any D/C planning needs prior to D/C. Bhavana Higgins CM/dude wrangler Planning/Care Management CM Discharge Assessment Start: 05/13/20 13:22 Freq: Status: Active Protocol: Document 05/13/20 13:22 HS (Rec: 05/13/20 13:24 [id number]) Discharge Planning Assessment Assigned Seismic Interpreter Bhavana Higgins RN DPOA/Assigned Designee Name Cole Mcmullen ([email or web address]) Contact Information [phone] Advance Directives? No History Provided By Patient Has Patient been admitted in last 30 No days? Prior Living Arrangements House Household Members spouse Type of transporation used prior to Drives own vehicle admit Independent with ADL's Yes Is patient alert and oriented? Yes Caregiver for Another No DME Already Rented / Owned Wheelchair,FWW / Walker,Other Comment patients family just bought a wheelchair and a knee scooter to help her with mobility when she D/C. Barriers to Discharge No Discharge Plan Home Referrals Initiated None needed Review Status In Process Next Review Type Continued Stay Review
--- NOTE | 2020-05-13 13:41 | PT.IPTN ---
Surgery Performed Operation Date: 05/12/20 14:15 Actual Procedures p wash out / ORIF Ankle Fracture(Left) - Gian Peter MD Physical Therapy Treatment Note M2 PT-IP Current Condition Start: 05/13/20 11:49 Freq: NEEDED Status: Active Protocol: Document 05/13/20 09:35 AB (Rec: 05/13/20 12:17 AB [id number]) Physical Therapy Current Condition Current Condition Evaluation Date 05/13/20 Treatment Diagnosis L distal fib fx w/ tibiotalar dislocation s/p ORIF; difficulty in walking Onset Date 05/12/20 Precautions Brace L ankle on soft cast Weight Bearing Status Weight Bearing Status Touch Down Weight Bearing Allowed Weight Bearing Amount (enter % TTWB LLE or #) (%) M3 PT-IP Subjective Start: 05/13/20 11:49 Freq: NEEDED Status: Active Protocol: Document 05/13/20 13:41 AB (Rec: 05/13/20 15:35 AB [id number]) Subjective Physical Therapy Visit Type Type Treatment Note Visit Start Time 13:41 Visit Stop Time 14:01 Total Visit Minutes 20 Number of CIRCLE CUTTING SAW OPERATOR Visits 0 Physical Therapy Visit Comments Patient Comments pt is agreeable to do PT Therapy Pain Assessment Pain When Pain Assessed At Rest Pain Present Pain Present Pain Reported Location Left Ankle Intensity 2 Scale Used Numeric (0 - 10) Pain Management Techniques Modification of Treatment, Timing of Activity with Medications M4 PT-IP Mobility and Gait Start: 05/13/20 11:49 Freq: NEEDED Status: Active Protocol: Document 05/13/20 13:41 AB (Rec: 05/13/20 15:35 AB [id number]) PT-Bed Mobility Assessment Supine to Sit Supine to Sit Independent Sit to Supine Sit to Supine Independent Scooting Scooting to Edge of Bed Standby Assistance PT-Transfer Assessment Sit to and From Stand Sit to and from Stand Standby Assistance,1 Person Assistance,Use of Upper Extremities Equipment Transfer Assistive Device Gait Belt,Front Wheeled Walker Orthotic/Prosthetic Devices or Brace: No Comments Mobility Comments completed supine to sit independent. completed sit to stand SBA and ambulated in room ~ 25 ft using FWW SBA to CGA and cues. educated pt on saftey. pt requested to go back in bed after ambulation and completed sit to supine mod I. positioned pt in bed. call light and table placed within reach. pt agreed to hae family bring in her knee scooter for training. Gait Assessment Gait Gait Assistance Required: Standby Assistance Distance (Feet) 25 Able to Maintain Weight Bearing Status Yes During Gait Assistive Devices Assistive Device Gait Belt,Front Wheeled Walker Orthotic/Prosthetic Devices or Brace: No Gait Deviations General Gait Pattern Decreased Stride Length, Decreased Feet Clearance Factors Limiting Gait Function Factors Limiting Gait Function Decreased Activity Tolerance, Decreased Strength,Limited Range of Motion,Pain,Poor Balance Comments Gait Comments completed ambulation using FWW 25 ft x 2 NWB/ TTWB on LLE. pt was able to maintain weight bearing precautions M5 PT-IP Objective Assessments Start: 05/13/20 11:49 Freq: NEEDED Status: Active Protocol: Document 05/13/20 09:35 AB (Rec: 05/13/20 12:17 AB [id number]) Orientation Orientation/Cognition Level of Alertness Alert Orientation Name,Age,Birthday,Month,Date, Year,Day of Week,Place, Situation Language Function Ability No Deficits Noted Safety Awareness Understands Safety Issues Memory Description No Deficits Noted Gross Range of Motion Lower Extremity ROM Assessment Left Impaired Impairments L ankle on soft cast Strength Lower Extremity Strength Assessment Left Impaired Ankle n/t Coordination Assessment Gross Coordination Gross Coordination WNL Sensation Assessment Sensation Gross Sensation WNL Muscle Tone Muscle Tone WNL Yes M6 PT-IP Treatment Start: 05/13/20 11:49 Freq: NEEDED Status: Active Protocol: Document 05/13/20 13:41 AB (Rec: 05/13/20 15:35 AB [id number]) Physical Therapy Treatment Education Education Provided Safety M7 PT-IP Assessment and Plan Start: 05/13/20 11:49 Freq: NEEDED Status: Active Protocol: Document 05/13/20 13:41 AB (Rec: 05/13/20 15:35 AB [id number]) PT Summary Assessment and Plan Potential Rehabilitation Potential Good Summary Impairments Pain,ROM,Strength,Balance,Bed Mobility,Transfers,Gait, Activity Tolerance Progress Towards Goals Progressing Toward Goals Assessment Summary pt requiring SBA with mobility . stated that she was able to get a w/c for mobility. pt will ask family to bring in her knee scooter for training tomorrow. pt plans to go home and her spouse to assist her. Goals Bed Mobility Goal Independent Transfer Goal Independent,Front Wheeled Walker Gait Goal Independent,Front Wheel Walker Gait Distance 50 Days to Meet Goals 5 Frequency of Treatment Frequency Of Treatment Twice a Day Treatment Plan Physical Therapy Treatment Plan Bed Mobility Training,Transfer Training,Gait Training, Therapeutic Exercise,Balance Retraining,Post Op Education, Discharge Planning,Hot or Cold Pack,Neuromuscular Re-ed, Coordination Retraining,Manual Therapy Recommendations To Nursing Amount of Assist Needed 1 Person Assist Discharge Recommendations PT Discharge Recommendations Home with Assistance, Outpatient PT Transportation Needs at Discharge Private Vehicle
[2020-05-13] MEDS: HYDROCODONE/ACET 5/325 TABLET 1 TAB PO (15:06)
[2020-05-13 16:09] VITALS: BP 159/81; PULSE 87; RESP 18; TEMP 36.8; O2SAT 97
[2020-05-13 20:27] VITALS: BP 157/75; PULSE 88; RESP 18; TEMP 36.6; O2SAT 97
[2020-05-13] MEDS: SODIUM CHLORIDE 0.9% FLUSH 10 ML IV (23:31)
[2020-05-14] MEDS: HYDROCODONE/ACET 5/325 TABLET 1 TAB PO ×3 (00:19→11:11)
[2020-05-14 00:20] VITALS: BP 149/82; PULSE 71; RESP 16; TEMP 36.5; O2SAT 94
--- NOTE | 2020-05-14 00:44 | PC.NURSE ---
Patient initially seen and assessed at 2345. Is alert and oriented. Breath sounds CTA with RA sat of 94%. HRR. BP continues to trend high at 149/82. Denies nausea. BT present and states she had BM 10-16. Denies dysuria, frequency or urgency with urination. Able to turn self in bed. When up to bathroom uses walker and SBA due being TTWB only on left. Dressing to left elbow is CDI. Dressing to left LE is CDI and CMS is intact. Denied pain during assessment but at 0019 requested/medicated with Vicodin for 3/10 pain and ice applied. Left LE is elevated on pillows. Calf SCD applied to right LE. Fall risk score is high and bed alarm is activated
[2020-05-14 04:10] VITALS: BP 175/86; PULSE 80; RESP 24; TEMP 36.3; O2SAT 97
[2020-05-14 04:30] VITALS: BP 141/87
[2020-05-14 07:30] VITALS: BP 147/88; PULSE 68; RESP 19; TEMP 36.9; O2SAT 99
[2020-05-14] MEDS: ENOXAPARIN 40 MG/0.4 ML SYRINGE SUBCUT (07:33)
[2020-05-14] MEDS: polyethylene glycoL 3350 17 GM POWD.PACK PO (07:33)
[2020-05-14] MEDS: CEFAZOLIN 2 GM/100 ML FROZ.PIGGY IV (07:33)
[2020-05-14] MEDS: DOCUSATE 100 MG CAPSULE PO (07:33)
[2020-05-14] MEDS: SODIUM CHLORIDE 0.9% FLUSH 10 ML IV (07:34)
--- NOTE | 2020-05-14 09:16 | P.DS_ITS ---
History of Present Illness History of Present Illness Date Patient Seen: 05/14/20 Time Patient Seen: 09:16 Chief complaint: GLF with open fracture Narrative: History and physical is in the chart previously completed note. Please refer to that note for this information. Discharge Providers Provider Date of admission: 05/12/20 13:24 Discharge Date: 05/14/20 Primary care physician: Pako Mehta MD Consults: 05/12/20 19:38 Consult to Discharge Planning Routine Comment: Consult to Physical Therapy Evaluate & Treat Comment: TDWB LLE Physician Instructions: Evaluate and Treat Consult to Respiratory Therapy Evaluate & Treat Comment: Physician Instructions: Evaluate and treat Discharge provider: Tyrone Sterling MD Summary Hospital Course Discharge Diagnosis: 1. Left ankle open fracture dislocation 2. Morbid obesity Hospital Course: Patient was admitted to the hospital and taken directly to the operating room on May 12, 2020 to address an open fracture dislocation of the left ankle. She had reasonably good pain control postoperatively. She was maintained in the hospital for 48 hours for IV antibiotics. Status at Discharge Cognitive/behavioral status at discharge: oriented Functional status at discharge: uses cane/walker Overall status at discharge: patient is progressing back to baseline Time Spent with Patient Time spent: Less than 30 minutes Exam Vital Signs (past 8 hours): - 05/14/20 04:10 05/14/20 04:30 05/14/20 07:30 Temperature 97.3 F L 98.4 F Pulse Rate 80 68 Respiratory Rate 24 19 Blood Pressure 175/86 H 141/87 H 147/88 H Pulse Oximetry 97 99 Oxygen Delivery Method Room Air Oxygen Flow Rate 0 Narrative Exam Narrative: Left ankle is dressed in a bulky splint with no signs of drainage. Light touch is intact in the superficial and deep peroneal nerve distribution as well as the tibial nerve distribution. She can dorsiflex and plantar flex her toes on command. Objective Labs Result Diagrams: 05/12/20 11:27 05/12/20 11:27 Discharge Assessment & Plan Assessment and Plan Assessment: Stable postoperative day 2 after open reduction internal fixation of left ankle fracture dislocation. Pain control has been satisfactory. At this point she is ready for discharge home. Plan of Treatment: Discontinue cefazolin and start oral Keflex. Discharge to home with 10 day supply of oral Keflex and with [place] for pain control. Follow up with Dr. Gian Peter in 10-14 days. Discharge Plan Discharge Plan Patient Disposition: Home Discharge orders & Medications Prescriptions: New hydrocodone-acetaminophen 5-325 mg Tablet 1 tab PO Q4HR PRN (Reason: Pain, Mild (1-3)) Qty: 40 RF: 0 cephalexin 250 mg Capsule 500 mg PO QID Qty: 40 RF: 0 Follow up/Referrals: Pako Mehta MD [Primary Care Provider] - Gian Peter MD [Physician] - 2 Weeks (Call the office at on Saturday to schedule an appointment with Dr. Peter.) Discharge Health Status Multidrug resistant organism: No MDRO Diet/Activity/Treatments Diet: Diet as Tolerated and Regular Activity: You may touch your toes to the floor on the left for balance only. Use the walker, scooter or other support for ambulation. Cold/Heat Therapy: You may apply ice through the splint as needed for pain control. Skin/Wound/Dressing Care Report to your healthcare provider any signs of infection, such as:: chills, fever, night sweats, increased pain, unusual drainage and unusual redness Dressing: Leave the splint intact until seen in the office in follow-up. Visit Report/Discharge Packet Instructions: DI for Open Reduction Internal Fixation Surgery, DI for Prescription Opioid Use Stand Alone Forms: Surgery Discharge Visit Report Forms: Patient Portal/API, Stroke Signs & Symptoms Discharge Data Primary Care Provider: Pako Mehta Quality VTE Deep Vein Thrombosis/Pulmonary Embolism Present on Admission: No
--- NOTE | 2020-05-14 10:43 | CM.DPC ---
DCP: continued: case received, EMR reviewed. DC to home order noted. KAYLIN Son reported that pt has some questions re an L&I claim and paperwork. Met with pt and then reviewed the notes from Admission Counselor Lidia Stafford from yesterday 05/13 at 2:14 PM. There is no one available in that dept today to speak with but see that Lidia did provide an L&I self insured form for pt to completed. She then instructed pt and/or her to drop this off at the ER desk before pt d/c'd from the hospital. She then advised her team to scan this under WC report and take it to the ER doctor to completed. Have now provided this information to pt and provided Lidia Stafford's direct line: [phone] in case of further questions. re dc planning: Pt confirms she is well set up for home and family care and will d/c today about 1200. KAYLIN Melo is updated.
--- NOTE | 2020-05-14 12:00 | PC.NURSE ---
Day shift: Pt left unit at approx 1200 via WC. Taken to car by ACADEMIC DIRECTOR. Pt's spouse will drive her home. Spouse was given the MD scripts. Pt has all personal belongings. Paperwork signed and all questions answered. Splint intact. CMS good BLE's. Pt happy to be going home today.
--- NOTE | 2020-05-14 12:04 | PT.IPTN ---
Current Diagnoses Displaced fracture of lateral malleolus of right fibula, initial encounter for open fracture type I or II (05/12/20) Surgery Performed Operation Date: 05/12/20 14:15 Actual Procedures p wash out / ORIF Ankle Fracture(Left) - Gian Peter MD Physical Therapy Treatment Note M2 PT-IP Current Condition Start: 05/13/20 11:49 Freq: NEEDED Status: Active Protocol: Document 05/13/20 09:35 AB (Rec: 05/13/20 12:17 AB [id number]) Physical Therapy Current Condition Current Condition Evaluation Date 05/13/20 Treatment Diagnosis L distal fib fx w/ tibiotalar dislocation s/p ORIF; difficulty in walking Onset Date 05/12/20 Precautions Brace L ankle on soft cast Weight Bearing Status Weight Bearing Status Touch Down Weight Bearing Allowed Weight Bearing Amount (enter % TTWB LLE or #) (%) M3 PT-IP Subjective Start: 05/13/20 11:49 Freq: NEEDED Status: Active Protocol: Document 05/14/20 11:20 SUZIE (Rec: 05/14/20 12:04 [id number]) Subjective Physical Therapy Visit Type Type Treatment Note Visit Start Time 11:20 Visit Stop Time 11:38 Total Visit Minutes 18 Notes Spouse in room with pt preparing for DC Physical Therapy Visit Comments Patient Comments pt is agreeable to do PT Therapy Pain Assessment Pain When Pain Assessed At Rest Pain Present Pain Present Pain Reported M4 PT-IP Mobility and Gait Start: 05/13/20 11:49 Freq: NEEDED Status: Active Protocol: Document 05/14/20 11:20 SUZIE (Rec: 05/14/20 12:04 [id number]) PT-Transfer Assessment Sit to and From Stand Sit to and from Stand Standby Assistance,1 Person Assistance,Use of Upper Extremities Equipment Transfer Assistive Device Gait Belt,Front Wheeled Walker Orthotic/Prosthetic Devices or Brace: No Transfers Transfer Destination Bed Transfer Technique ambulated using FWW Transfer Ability Level of Assist Standby Assistance,Use of Upper Extremities Comments Mobility Comments Pt in chair wanting to trial knee scooter. Pt transferred from chair SBA and used FWW to ambulate to the sink. SUMMER COUNSELOR then placed Knee scooter next to pt. She attempted to mount it and stated it was uncomfortable and that she would just use the FWW for now and maybe try the scooter in a couple weeks. Fww was adjusted to a more suitable height and pt was able to use UEs more effeciently. Pt ambulated in room and in front of mirror to correct posture and UE use. She is SBA with all mobility and gait. Gait Assessment Gait Gait Assistance Required: Standby Assistance Distance (Feet) 25 Able to Maintain Weight Bearing Status Yes During Gait Assistive Devices Assistive Device Gait Belt,Front Wheeled Walker Orthotic/Prosthetic Devices or Brace: No Gait Deviations General Gait Pattern Decreased Stride Length, Decreased Feet Clearance Factors Limiting Gait Function Factors Limiting Gait Function Decreased Activity Tolerance, Decreased Strength,Limited Range of Motion,Pain,Poor Balance Comments Gait Comments see mobility section M5 PT-IP Objective Assessments Start: 05/13/20 11:49 Freq: NEEDED Status: Active Protocol: Document 05/13/20 09:35 AB (Rec: 05/13/20 12:17 AB [id number]) Orientation Orientation/Cognition Level of Alertness Alert Orientation Name,Age,Birthday,Month,Date, Year,Day of Week,Place, Situation Language Function Ability No Deficits Noted Safety Awareness Understands Safety Issues Memory Description No Deficits Noted Gross Range of Motion Lower Extremity ROM Assessment Left Impaired Impairments L ankle on soft cast Strength Lower Extremity Strength Assessment Left Impaired Ankle n/t Coordination Assessment Gross Coordination Gross Coordination WNL Sensation Assessment Sensation Gross Sensation WNL Muscle Tone Muscle Tone WNL Yes M6 PT-IP Treatment Start: 05/13/20 11:49 Freq: NEEDED Status: Active Protocol: Document 05/14/20 11:20 (Rec: 05/14/20 12:04 [id number]) Physical Therapy Treatment Education Education Provided Safety M7 PT-IP Assessment and Plan Start: 05/13/20 11:49 Freq: NEEDED Status: Active Protocol: Document 05/14/20 11:20 LJ (Rec: 05/14/20 12:04 [id number]) PT Summary Assessment and Plan Potential Rehabilitation Potential Good Summary Impairments Pain,ROM,Strength,Balance,Bed Mobility,Transfers,Gait, Activity Tolerance Progress Towards Goals Progressing Toward Goals Assessment Summary Pt requiring SBA for mobility and gait. At this point she will use wheel chair and FWW ( obtaining from mother when they arrive home). She is able to get around safely as long as she moves a bit slower and does not perez. She is safe for DC with assistance from spouse and dtr Goals Bed Mobility Goal Independent Transfer Goal Independent,Front Wheeled Walker Gait Goal Independent,Front Wheel Walker Gait Distance 50 Days to Meet Goals 5 Frequency of Treatment Frequency Of Treatment Twice a Day Treatment Plan Physical Therapy Treatment Plan Bed Mobility Training,Transfer Training,Gait Training, Therapeutic Exercise,Balance Retraining,Post Op Education, Discharge Planning,Hot or Cold Pack,Neuromuscular Re-ed, Coordination Retraining,Manual Therapy Recommendations To Nursing Amount of Assist Needed 1 Person Assist Discharge Recommendations PT Discharge Recommendations Home with Assistance, Outpatient PT Transportation Needs at Discharge Private Vehicle
== END 2020-05-14 12:05 | disposition home or self-care (01) | DRG 313 ==
LOC: ED 13:24 → AC 14:26
PROVIDERS: Admitting Provider Orthopaedic Surgery; Emergency Provider Emergency Medicine; PCP Family Medicine; Referring Provider Emergency Medicine; Visit Provider Orthopaedic Surgery
PROC: 0QSK04Z Reposition Left Fibula with Internal Fixation Device, Open Approach (ICD-10-PCS; principal; 2020-05-12 14:15)
DX: S82.62XB Displaced fracture of lateral malleolus of left fibula, initial encounter for open fracture type I or II (principal); E66.01 Morbid (severe) obesity due to excess calories; Z68.38 Body mass index [BMI] 38.0-38.9, adult; W18.30XA Fall on same level, unspecified, initial encounter; Y99.0 Civilian activity done for income or pay
CPT/HCPCS: 27752; 36415; 64450; 73560; 73600; 73610; 76000; 80048; 85025; 87635; 94770; 96365; 97116; 97161; 99284; 99285; 99291; 90715; J0690; J1100; J1170; J1650; J2250; J2405; J2704; J3010

== ENCOUNTER → 2024-01-20 15:40 | Outpatient (CLI) | payer OTHER, SELFPAY ==
[2020-05-12 19:50] VITALS: BMI 38.2
--- NOTE | 2024-01-20 15:41 | DI.CT.S_ITS ---
PROCEDURE: CT LE LT W CON INDICATIONS: PAIN IN LEFT ANKLE AND JOINTS OF LEFT FOOT TECHNIQUE: Noncontrast 1-1.5 mm axial sections acquired from above the tibiotalar joint to the bottom of the calcaneus, with coronal and sagittal reformats. For radiation dose reduction, the following was used: automated exposure control, adjustment of mA and/or kV according to patient size. COMPARISON: [facility], CR, XR ANKLE LT 2V, 05/12/2020, 10:49. [facility], CR, XR ANKLE 3 VIEWS WEIGHT BEARING LEFT, 11/12/2023, 16:27. FINDINGS: Image quality: Excellent. Bones: Postsurgical changes are seen from distal fibular fracture fixation. Fracture appears healed. Normal tibiotalar alignment. Small osseous projection is seen along the medial aspect of the distal fibular metaphysis and adjacent to the distal fibular tip related to the prior trauma. Small ossifications adjacent to the medial malleolus are also likely related to the prior trauma. Mild degenerative spurring at the dorsal aspect of the talonavicular joint and along the margins of the tibiotalar joint. Degenerative changes are seen at the interphalangeal joints of the toes. Mild degenerative changes are seen at the 1st metatarsophalangeal joint. Soft tissues: Mild subcutaneous edema or scarring over the medial and lateral malleoli. No significant tibiotalar effusion. The articular cartilages, ligaments, tendons are not well evaluated with CT. 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 IMPRESSION: 1. Postsurgical changes from distal fibular fracture fixation. Fracture is healed. 2. 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 3. Fatty infiltration of the abductor osteoarthrosis minimi muscle is suspicious for chronic denervation changes/Jackson neuropathy. Approved by: Rishi Salvador M.D. on 01/21/2024 at 9:59
== END ==
PROVIDERS: PCP Family Medicine; Referring Provider Orthopaedic Surgery Foot and Ankle Surgery; Visit Provider Orthopaedic Surgery Foot and Ankle Surgery
DX: M25.572 Pain in left ankle and joints of left foot (principal); M19.071 Primary osteoarthritis, right ankle and foot; S82.832S Other fracture of upper and lower end of left fibula, sequela
CPT/HCPCS: 73700

== ENCOUNTER → 2025-04-08 11:53 | Outpatient (CLI) | payer OTHER, SELFPAY ==
[2020-05-12 19:50] VITALS: BMI 38.2
--- NOTE | 2025-04-08 12:33 | EKG_ITS ---
[address] [address] Test Date: 2025-04-08 Pat Name: Brooke Mcmullen Department: [facility] Room: Gender: Female Renewals Manager: MONICA : 1965 Requested By: Order Number: [id number] Reading MD: Chidi Morrissey MD Measurements Intervals [place] Rate: 67 P: 54 MT: 168 QRS: 25 QRSD: 78 T: 59 QT: 406 QTc: 429 Interpretive Statements Normal sinus rhythm Cannot rule out Anterior infarct , age undetermined Electronically Signed On 04-12-2025 7:43:42 PDT by Chidi Morrissey MD
[2025-04-08 12:58] LABS: Add Manual Diff / Slide Review NO; Hematocrit 46.4 % (36-46); Hemoglobin 14.9 g/dL (12.0-16.0); Lymphocytes Absolute Auto 1500 /uL (1100-4500); Mean Corpuscular HGB Conc 32.1 % (30-36); Mean Corpuscular Hemoglobin 25.6 PG (26-34); Mean Corpuscular Volume 79.7 fL (80-100); Platelet Count 310 X10^3/uL (150-400)
[2025-04-08 13:24] LABS: Hemoglobin A1C% w Est Avg Glu 6.2 % (4.0-6.0)
[2025-04-08 13:26] LABS: Blood Urea Nitrogen 14 mg/dL (7-17); Calcium 9.6 mg/dL (8.4-10.2); Carbon Dioxide 24 mmol/L (22-32); Chloride 102 mmol/L (98-107); Estimated Glomerular Filt Rate > 60 mL/min (>60); Glucose 94 mg/dL (70-99); HEMOLYSIS 23 (0-50); Potassium 4.6 mmol/L (3.4-5.1); Sodium 138 mmol/L (137-145)
== END ==
PROVIDERS: PCP Internal Medicine; Referring Provider Orthopaedic Surgery Foot and Ankle Surgery; Visit Provider Orthopaedic Surgery Foot and Ankle Surgery
DX: Z01.812 Encounter for preprocedural laboratory examination (principal); R73.9 Hyperglycemia, unspecified; Z01.818 Encounter for other preprocedural examination
CPT/HCPCS: 36415; 80048; 83036; 85025; 93005